=== PATIENT | female | born 1975 | race Caucasian/White ===

== ENCOUNTER 2022-11-25 23:33 | Inpatient (IN) | payer BC, MEDICARE ==
[~2022-11-25] VITALS: Ht 160 cm; Wt 93.4 kg
[~2022-11-25 23:33] MED LIST: AMBIEN10 MG PO; COLESTIPOL HCL1 GM PO; DICYCLOMINE HCL20 MG PO; EQUETRO200 MG PO; LEVOTHYROXINE25 MCG PO; LEVOTHYROXINE50 MCG PO; LIOTHYRONINE PO; LISINOPRIL10 MG PO; LITHIUM CARBON150 MG PO; METOPROLOL SUCC50 MG PO; METOPROLOL TART25 MG PO; NEXIUM40 MG PO; SEROQUEL200 MG PO; XANAX0.5 MG PO
[2022-11-26] VITALS (51 sets, daily range): BP systolic 46–140; BP diastolic 29–126
[2022-11-26] MEDS ORDERED: SODIUM CHLORIDE 0.9% 1000ML 1,000 ML IV SCH (01:00)
[2022-11-26] MEDS ORDERED: SODIUM CHLORIDE 0.9% 1000ML 1,000 ML IV ONE (01:00)
[2022-11-26] MEDS ORDERED: ALPRAZOLAM0.5 MG (01:50)
[2022-11-26] MEDS ORDERED: LITHIUM CARBON300 MG (01:50)
[2022-11-26] MEDS ORDERED: SYNTHROID25 MCG (01:50)
[2022-11-26] MEDS ORDERED: LISINOPRIL5 MG PO (01:50)
[2022-11-26] MEDS ORDERED: EQUETRO200 MG (01:50)
[2022-11-26] MEDS ORDERED: AMBIEN10 MG (01:50)
[2022-11-26] MEDS ORDERED: TREMFYA100 MG/11 (01:50)
[2022-11-26] MEDS ORDERED: QUETIAPINE FUM200 MG (01:50)
[2022-11-26] MEDS ORDERED: FENOFIBRATE145 M1 (01:50)
[2022-11-26] MEDS ORDERED: METFORMIN HCL500 M1 (01:50)
[2022-11-26] MEDS ORDERED: QUETIAPINE FUMA25 MG (01:50)
[2022-11-26] MEDS ORDERED: DEXTROSE 50% SYRINGE 50 ML IV PRN (02:45)
[2022-11-26] MEDS ORDERED: SOD POLYSTYRENE SULFONATE SUSP 15 GM/60 ML BTL PO ONE (02:45)
[2022-11-26] MEDS ORDERED: SODIUM BICARBONATE 8.4% 50 ML in SODIUM CHLORIDE 0.45% 1,000 ML IV SCH (02:45)
[2022-11-26] MEDS: HYDROCODONE/APAP 5MG-325MG TAB PO PRN ×2 (03:30→12:26)
[2022-11-26 03:52] LABS: CLARITY,URINE CLEAR (CLEAR); COLOR,URINE YELLOW (YELLOW); KETONES,URINE NEGATIVE (NEGATIVE); LEUKOCYTE ESTERASE ,URINE TRACE (NEGATIVE); NITRITE,URINE NEGATIVE (NEGATIVE); PROTEIN,URINE DIPSTICK 1+ (NEGATIVE); URINE UROBILINOGEN 0.2 mg/dL (0.2 - 1)
[2022-11-26 03:55] LABS: BACTERIA,URINE FEW /HPF; EPITHELIAL CELLS,URINE MANY /LPF
[2022-11-26] MEDS ORDERED: SODIUM CHLORIDE 0.45% 1,000 ML ONE ×2 (04:28→04:34)
[2022-11-26] MEDS ORDERED: SODIUM BICARBONATE 8.4% SYRING 50 ML ONE (04:30)
[2022-11-26] MEDS ORDERED: NOREPINEPHRINE 8 MG/D5W 250 ML 250 ML ONE (05:19)
[2022-11-26 06:37] LABS: BASOPHILS # (AUTO) 0.1 (0.0-0.1); BASOPHILS % 0.6 % (0.0-1.0); EOSINOPHILS # (AUTO) 0.1 (0.0-0.4); EOSINOPHILS % 0.9 % (0.0-6.0); HEMATOCRIT 33.8 % (34.2-44.1); HEMOGLOBIN 9.8 g/dL (12.0-16.0); LYMPHOCYTES # (AUTO) 2.8 (1.0-3.2); LYMPHOCYTES % 30.4 % (18.0-39.1); MEAN CORPUSCULAR HEMOGLOBIN 28.7 pg (28-32); MEAN CORPUSCULAR VOLUME 98.8 fL (81-99); MONOCYTES # (AUTO) 0.6 (0.2-0.8); MONOCYTES % 6.2 % (4.4-11.3); NEUTROPHILS # (AUTO) 5.2 (2.1-6.9); NEUTROPHILS % 57.4 % (38.7-80.0); PLATELET COUNT 283 x10e3/uL (140-360); RED BLOOD COUNT 3.42 x10e6/uL (3.6-5.1); RED CELL DISTRIBUTION WIDTH 14.9 % (11.7-14.4)
[2022-11-26 07:04] LABS: ANION GAP 15.6 mmol/L (8-16); CREATININE, SERUM 1.69 mg/dL (0.57-1.11); POTASSIUM 4.6 mmol/L (3.5-5.1)
[2022-11-26] MEDS: LEVOTHYROXINE SODIUM 75 MCG TAB PO SCH (09:06)
[2022-11-26] MEDS: LITHIUM CARBONATE 150 MG CAPSULE PO SCH ×2 (09:07→17:00)
[2022-11-26] MEDS: CARBAMAZEPINE 200 MG TAB PO SCH ×2 (09:07→17:27)
[2022-11-26] MEDS: INSULIN REGULAR, HUMAN 100 UNIT/1 ML SQ SCH ×4 (09:09→22:26)
[2022-11-26] MEDS: ONDANSETRON HCL INJ 2MG/ML 2ML 2 MG/ML VIAL IV PRN ×2 (12:26→21:30)
[2022-11-26 13:44] LABS: BAND NEUTROPHILS % (MANUAL) 8 %; EOSINOPHILS % (MANUAL) 1 % (0-7); LYMPHOCYTES % (MANUAL) 29 % (19-48); MONOCYTES % (MANUAL) 7 % (3.4-9.0); NEUTROPHILS % (MANUAL) 55 % (40-74)
[2022-11-26 13:45] LABS: PLATELET MORPHOLOGY COMMENT FEW LARGE
[2022-11-26 13:46] LABS: RBC MORPHOLOGY COMMENT NORMAL
[2022-11-26] MEDS: ALPRAZOLAM 0.5 MG TAB PO PRN ×2 (17:19→21:55)
[2022-11-26] MEDS: NOREPINEPHRINE 8 MG/D5W 250 ML 250 ML IV SCH ×2 (17:20→20:33)
[2022-11-26] MEDS: FUROSEMIDE INJ 10 MG/ML 2 ML VIAL IV SCH (18:26)
[2022-11-26] MEDS ORDERED: QUETIAPINE FUMARATE 100 MG TAB PO SCH (21:00)
[2022-11-26] MEDS: ZOLPIDEM TARTRATE 10 MG TAB PO PRN (21:55)
[2022-11-27] VITALS (86 sets, daily range): BP systolic 65–136; BP diastolic 28–117
[2022-11-27] MEDS: HYDROCODONE/APAP 5MG-325MG TAB PO PRN (03:38)
[2022-11-27] MEDS: ALPRAZOLAM 0.5 MG TAB PO PRN ×2 (03:45→08:37)
[2022-11-27] MEDS: NOREPINEPHRINE 8 MG/D5W 250 ML 250 ML IV SCH ×4 (07:31→22:11)
[2022-11-27] MEDS: POTASSIUM CHLORIDE 20 MEQ TAB CR PO SCH (08:08)
[2022-11-27] MEDS: LITHIUM CARBONATE 150 MG CAPSULE PO SCH ×2 (08:08→17:09)
[2022-11-27] MEDS: CARBAMAZEPINE 200 MG TAB PO SCH ×2 (08:08→17:09)
[2022-11-27] MEDS: FUROSEMIDE INJ 10 MG/ML 2 ML VIAL IV SCH ×2 (08:08→17:10)
[2022-11-27] MEDS: INSULIN REGULAR, HUMAN 100 UNIT/1 ML SQ SCH ×5 (08:11→21:00)
[2022-11-27] MEDS ORDERED: CEFTRIAXONE 2 GM in SODIUM CHLORIDE 0.9% 100 ML IV SCH (09:00)
[2022-11-27] MEDS: LEVOTHYROXINE SODIUM 75 MCG TAB PO SCH (09:02)
[2022-11-27] MEDS ORDERED: INSULIN GLARGINE 100 UNITS/ML VIAL SQ ONE ×3 (09:15→21:00)
[2022-11-27 09:37] LABS: BASOPHILS # (AUTO) 0.1 (0.0-0.1); BASOPHILS % 0.8 % (0.0-1.0); EOSINOPHILS % 0.4 % (0.0-6.0); HEMATOCRIT 43.2 % (34.2-44.1); HEMOGLOBIN 12.4 g/dL (12.0-16.0); LYMPHOCYTES # (AUTO) 2.2 (1.0-3.2); LYMPHOCYTES % 22.7 % (18.0-39.1); MEAN CORPUSCULAR HEMOGLOBIN 28.4 pg (28-32); MEAN CORPUSCULAR HGB CONC 28.7 g/dL (31-35); MEAN CORPUSCULAR VOLUME 99.1 fL (81-99); MONOCYTES # (AUTO) 0.5 (0.2-0.8); MONOCYTES % 5.5 % (4.4-11.3); NEUTROPHILS # (AUTO) 6.1 (2.1-6.9); NEUTROPHILS % 63.1 % (38.7-80.0); PLATELET COUNT 254 x10e3/uL (140-360); RED BLOOD COUNT 4.36 x10e6/uL (3.6-5.1); RED CELL DISTRIBUTION WIDTH 14.8 % (11.7-14.4)
[2022-11-27] MEDS ORDERED: ENOXAPARIN INJ 80 MG/0.8 ML SYR SC ONE (09:45)
[2022-11-27 09:48] LABS: INR 1.2; PROTHROMBIN TIME 15.4 seconds (11.9-14.5)
[2022-11-27 09:49] LABS: PARTIAL THROMBOPLASTIN TIME 27.3 seconds (23.8-35.5)
[2022-11-27 10:02] LABS: ALBUMIN 2.5 g/dL (3.5-5.0); ALBUMIN/GLOBULIN RATIO 0.6 (0.8-2.0); CALCIUM 8.7 mg/dL (8.4-10.2); CREATININE, SERUM 2.72 mg/dL (0.57-1.11)
[2022-11-27 10:51] LABS: BAND NEUTROPHILS % (MANUAL) 4 %; LYMPHOCYTES % (MANUAL) 16 % (19-48); MONOCYTES % (MANUAL) 5 % (3.4-9.0); MYELOCYTES % (MANUAL) 5 % (0-0); NEUTROPHILS % (MANUAL) 66 % (40-74); NUCLEATED RED BLOOD CELLS 1; PLATELET ESTIMATE ADEQUATE; PLATELET MORPHOLOGY COMMENT NORMAL; RBC MORPHOLOGY COMMENT NORMAL
[2022-11-27] MEDS ORDERED: INSULIN REGULAR, HUMAN 100 UNIT/1 ML SQ ONE (13:45)
[2022-11-27] MEDS: ONDANSETRON HCL INJ 2MG/ML 2ML 2 MG/ML VIAL IV PRN ×2 (14:36→22:10)
[2022-11-27] MEDS: HYDROCODONE/APAP 10MG-325MG TAB PO PRN (14:36)
[2022-11-27] MEDS: METOPROLOL SUCCINATE 50 MG TAB XL PO SCH (17:10)
[2022-11-27 19:52] LABS: ABG HCO3 14 mmol/L (22-26); ABG PCO2 28 mmHg (35-45); ABG PO2 104 mmHg (80-105); ABG TCO2 15
[2022-11-27] MEDS: ENOXAPARIN INJ 80 MG/0.8 ML SYR SC SCH (20:17)
[2022-11-27] MEDS: QUETIAPINE FUMARATE 100 MG TAB PO SCH (20:17)
[2022-11-27] MEDS ORDERED: SODIUM BICARBONATE 650 MG TAB PO ONE (20:50)
[2022-11-27] MEDS ORDERED: DEXTROSE 50% SYRINGE 50 ML IV PRN (21:00)
[2022-11-28] VITALS (84 sets, daily range): BP systolic 65–157; BP diastolic 39–102
[2022-11-28] MEDS: NOREPINEPHRINE 8 MG/D5W 250 ML 250 ML IV SCH ×4 (02:45→16:24)
[2022-11-28] MEDS: LEVOTHYROXINE SODIUM 50 MCG TAB PO SCH (05:42)
[2022-11-28] MEDS: ONDANSETRON HCL INJ 2MG/ML 2ML 2 MG/ML VIAL IV PRN ×3 (06:18→19:29)
[2022-11-28 06:44] LABS: BASOPHILS # (AUTO) 0.1 (0.0-0.1); BASOPHILS % 0.6 % (0.0-1.0); EOSINOPHILS # (AUTO) 0.2 (0.0-0.4); EOSINOPHILS % 1.6 % (0.0-6.0); HEMATOCRIT 38.5 % (34.2-44.1); HEMOGLOBIN 11.4 g/dL (12.0-16.0); LYMPHOCYTES # (AUTO) 2.8 (1.0-3.2); LYMPHOCYTES % 29.1 % (18.0-39.1); MEAN CORPUSCULAR HEMOGLOBIN 28.4 pg (28-32); MEAN CORPUSCULAR HGB CONC 29.6 g/dL (31-35); MONOCYTES # (AUTO) 0.6 (0.2-0.8); MONOCYTES % 6.2 % (4.4-11.3); NEUTROPHILS # (AUTO) 5.4 (2.1-6.9); NEUTROPHILS % 56.4 % (38.7-80.0); PLATELET COUNT 269 x10e3/uL (140-360); RED BLOOD COUNT 4.01 x10e6/uL (3.6-5.1); RED CELL DISTRIBUTION WIDTH 14.2 % (11.7-14.4)
[2022-11-28 07:12] LABS: ALBUMIN 2.3 g/dL (3.5-5.0); ALBUMIN/GLOBULIN RATIO 0.5 (0.8-2.0); ANION GAP 20.2 mmol/L (8-16); CALCIUM 8.7 mg/dL (8.4-10.2); CREATININE, SERUM 2.79 mg/dL (0.57-1.11); POTASSIUM 4.2 mmol/L (3.5-5.1)
[2022-11-28] MEDS: SODIUM BICARBONATE 650 MG TAB PO SCH ×3 (08:25→21:03)
[2022-11-28] MEDS: FENOFIBRATE 145 MG TAB PO SCH ×2 (08:25→08:53)
[2022-11-28] MEDS: COLESTIPOL HCL 1 G TAB PO SCH ×2 (08:25→08:53)
[2022-11-28] MEDS: LITHIUM CARBONATE 150 MG CAPSULE PO SCH ×2 (08:25→16:21)
[2022-11-28] MEDS: DICYCLOMINE HCL 20 MG TAB PO SCH ×2 (08:27→08:53)
[2022-11-28] MEDS: CARBAMAZEPINE 200 MG TAB PO SCH ×2 (08:27→16:21)
[2022-11-28] MEDS: METOPROLOL SUCCINATE 50 MG TAB XL PO SCH ×2 (08:27→16:23)
[2022-11-28] MEDS: ENOXAPARIN INJ 80 MG/0.8 ML SYR SC SCH ×2 (08:27→21:04)
[2022-11-28] MEDS: POTASSIUM CHLORIDE 20 MEQ TAB CR PO SCH (08:27)
[2022-11-28] MEDS: INSULIN GLARGINE 100 UNITS/ML VIAL SQ SCH ×2 (08:31→21:03)
[2022-11-28] MEDS: INSULIN REGULAR, HUMAN 100 UNIT/1 ML SQ SCH ×4 (08:32→21:03)
[2022-11-28 10:12] LABS: CHOL/HDL RATIO 4.6 (3.0-3.6); CHOLESTEROL 161 MD/DL (0-199); HDL CHOLESTEROL 35 MG/DL (40-60); TRIGLYCERIDES 431 MG/DL (0-149)
[2022-11-28] MEDS: QUETIAPINE FUMARATE 100 MG TAB PO SCH (21:03)
[2022-11-29] VITALS (85 sets, daily range): BP systolic 85–135; BP diastolic 43–95
[2022-11-29] MEDS: NOREPINEPHRINE 8 MG/D5W 250 ML 250 ML IV SCH (02:41)
[2022-11-29] MEDS: LEVOTHYROXINE SODIUM 50 MCG TAB PO SCH (05:18)
[2022-11-29 05:33] LABS: BASOPHILS # (AUTO) 0.1 (0.0-0.1); BASOPHILS % 0.6 % (0.0-1.0); EOSINOPHILS # (AUTO) 0.2 (0.0-0.4); EOSINOPHILS % 1.7 % (0.0-6.0); HEMOGLOBIN 10.1 g/dL (12.0-16.0); LYMPHOCYTES # (AUTO) 2.7 (1.0-3.2); LYMPHOCYTES % 30.9 % (18.0-39.1); MEAN CORPUSCULAR HEMOGLOBIN 28.5 pg (28-32); MEAN CORPUSCULAR HGB CONC 29.7 g/dL (31-35); MEAN CORPUSCULAR VOLUME 95.8 fL (81-99); MONOCYTES # (AUTO) 0.5 (0.2-0.8); MONOCYTES % 6.3 % (4.4-11.3); NEUTROPHILS # (AUTO) 4.7 (2.1-6.9); NEUTROPHILS % 54.6 % (38.7-80.0); PLATELET COUNT 259 x10e3/uL (140-360); RED BLOOD COUNT 3.55 x10e6/uL (3.6-5.1); RED CELL DISTRIBUTION WIDTH 14.3 % (11.7-14.4)
[2022-11-29 05:49] LABS: ANION GAP 17.9 mmol/L (8-16); CALCIUM 8.8 mg/dL (8.4-10.2); CREATININE, SERUM 2.39 mg/dL (0.57-1.11); POTASSIUM 3.9 mmol/L (3.5-5.1)
[2022-11-29] MEDS: ONDANSETRON HCL INJ 2MG/ML 2ML 2 MG/ML VIAL IV PRN ×2 (07:53→19:40)
[2022-11-29] MEDS: INSULIN REGULAR, HUMAN 100 UNIT/1 ML SQ SCH ×4 (07:54→20:19)
[2022-11-29] MEDS: POTASSIUM CHLORIDE 20 MEQ TAB CR PO SCH (07:58)
[2022-11-29] MEDS: SODIUM BICARBONATE 650 MG TAB PO SCH ×2 (07:58→17:27)
[2022-11-29] MEDS: LITHIUM CARBONATE 150 MG CAPSULE PO SCH ×2 (07:58→17:27)
[2022-11-29] MEDS: CARBAMAZEPINE 200 MG TAB PO SCH ×2 (07:59→17:27)
[2022-11-29] MEDS: ENOXAPARIN INJ 80 MG/0.8 ML SYR SC SCH (07:59)
[2022-11-29] MEDS: METOPROLOL SUCCINATE 50 MG TAB XL PO SCH ×2 (07:59→17:28)
[2022-11-29] MEDS: INSULIN GLARGINE 100 UNITS/ML VIAL SQ SCH ×2 (08:12→20:19)
[2022-11-29] MEDS: MINERAL OIL TOP SCH ×2 (08:20→17:27)
[2022-11-29] MEDS: [UNRECOGNIZED DRUG - OTHER] TOP SCH ×2 (08:20→17:27)
[2022-11-29] MEDS: GLYCERI TOP SCH ×2 (08:20→17:27)
[2022-11-29] MEDS: KCL 20 MEQ PACKET/ ORAL SOLN PO SCH (08:43)
[2022-11-29] MEDS ORDERED: MINERAL OIL/PETROLAT/GLYCERI 6OZ BTL TOP SCH (09:00)
[2022-11-29] MEDS ORDERED: SODIUM BICARBONATE 650 MG TAB PO SCH (09:00)
[2022-11-29] MEDS ORDERED: HEPARIN 25,000 UNIT 1,200 UNIT in DEXTROSE 5% 250ML 250 ML IV SCH (11:30)
[2022-11-29] MEDS: HEPARIN 25,000 UNIT 1,200 UNIT in DEXTROSE 5% 250ML 250 ML IV SCH (12:52)
[2022-11-29] MEDS: SODIUM CHLORIDE 0.9% 1000ML 1,000 ML IV SCH (18:47)
[2022-11-29] MEDS: ZOLPIDEM TARTRATE 10 MG TAB PO PRN (20:16)
[2022-11-29] MEDS: ALPRAZOLAM 0.5 MG TAB PO PRN (20:16)
[2022-11-29] MEDS: QUETIAPINE FUMARATE 100 MG TAB PO SCH (21:41)
[2022-11-29 21:44] LABS: CREATININE,URINE RANDOM 58.32 mg/dL (47-110); TOTAL PROTEIN 24HR, URINE 187.2 mg/24hr (50-100); TOTAL PROTEIN, URINE 20.8 mg/dL (1-14)
[2022-11-30] VITALS (41 sets, daily range): BP systolic 86–139; BP diastolic 60–97
[2022-11-30] MEDS: LEVOTHYROXINE SODIUM 50 MCG TAB PO SCH (05:53)
[2022-11-30 06:06] LABS: BASOPHILS % 0.5 % (0.0-1.0); EOSINOPHILS # (AUTO) 0.2 (0.0-0.4); EOSINOPHILS % 2.1 % (0.0-6.0); HEMATOCRIT 27.5 % (34.2-44.1); HEMOGLOBIN 8.8 g/dL (12.0-16.0); LYMPHOCYTES # (AUTO) 2.5 (1.0-3.2); LYMPHOCYTES % 29.6 % (18.0-39.1); MEAN CORPUSCULAR HEMOGLOBIN 29.1 pg (28-32); MEAN CORPUSCULAR VOLUME 91.1 fL (81-99); MONOCYTES # (AUTO) 0.5 (0.2-0.8); MONOCYTES % 5.7 % (4.4-11.3); NEUTROPHILS # (AUTO) 4.5 (2.1-6.9); NEUTROPHILS % 53.7 % (38.7-80.0); PLATELET COUNT 241 x10e3/uL (140-360); RED BLOOD COUNT 3.02 x10e6/uL (3.6-5.1); RED CELL DISTRIBUTION WIDTH 15.1 % (11.7-14.4)
[2022-11-30 06:29] LABS: ALBUMIN 2.3 g/dL (3.5-5.0); ALBUMIN/GLOBULIN RATIO 0.7 (0.8-2.0); ANION GAP 15.8 mmol/L (8-16); CALCIUM 8.7 mg/dL (8.4-10.2); CREATININE, SERUM 1.86 mg/dL (0.57-1.11); POTASSIUM 3.8 mmol/L (3.5-5.1)
[2022-11-30] MEDS: INSULIN REGULAR, HUMAN 100 UNIT/1 ML SQ SCH ×4 (07:36→20:36)
[2022-11-30] MEDS: SODIUM BICARBONATE 650 MG TAB PO SCH ×2 (08:24→17:13)
[2022-11-30] MEDS: CARBAMAZEPINE 200 MG TAB PO SCH ×2 (08:24→17:13)
[2022-11-30] MEDS: KCL 20 MEQ PACKET/ ORAL SOLN PO SCH (08:24)
[2022-11-30] MEDS: METOPROLOL SUCCINATE 50 MG TAB XL PO SCH ×2 (08:25→17:14)
[2022-11-30] MEDS: LITHIUM CARBONATE 150 MG CAPSULE PO SCH ×2 (08:25→17:14)
[2022-11-30] MEDS: INSULIN GLARGINE 100 UNITS/ML VIAL SQ SCH ×2 (08:27→20:38)
[2022-11-30] MEDS: [UNRECOGNIZED DRUG - OTHER] TOP SCH ×2 (08:27→17:14)
[2022-11-30] MEDS: GLYCERI TOP SCH ×2 (08:27→17:14)
[2022-11-30] MEDS: MINERAL OIL TOP SCH ×2 (08:27→17:14)
[2022-11-30] MEDS: HEPARIN 25,000 UNIT 1,200 UNIT in DEXTROSE 5% 250ML 250 ML IV SCH (13:36)
[2022-11-30] MEDS: SODIUM CHLORIDE 0.9% 1000ML 1,000 ML IV SCH (13:45)
[2022-11-30] MEDS: NOREPINEPHRINE 8 MG/D5W 250 ML 250 ML IV SCH (17:15)
[2022-11-30] MEDS: QUETIAPINE FUMARATE 100 MG TAB PO SCH (20:19)
[2022-11-30] MEDS: ALPRAZOLAM 0.5 MG TAB PO PRN (20:57)
[2022-11-30] MEDS: ZOLPIDEM TARTRATE 10 MG TAB PO PRN (20:59)
[2022-12-01] VITALS (53 sets, daily range): BP systolic 97–151; BP diastolic 61–104
[2022-12-01] MEDS: HEPARIN 25,000 UNIT 1,200 UNIT in DEXTROSE 5% 250ML 250 ML IV SCH ×2 (01:43→16:36)
[2022-12-01] MEDS: ALPRAZOLAM 0.5 MG TAB PO PRN ×2 (03:32→20:45)
[2022-12-01] MEDS: ONDANSETRON HCL INJ 2MG/ML 2ML 2 MG/ML VIAL IV PRN (03:32)
[2022-12-01] MEDS: LEVOTHYROXINE SODIUM 50 MCG TAB PO SCH (05:45)
[2022-12-01 07:31] LABS: BASOPHILS # (AUTO) 0.1 (0.0-0.1); EOSINOPHILS # (AUTO) 0.3 (0.0-0.4); EOSINOPHILS % 3.1 % (0.0-6.0); HEMATOCRIT 28.1 % (34.2-44.1); HEMOGLOBIN 8.6 g/dL (12.0-16.0); LYMPHOCYTES # (AUTO) 2.5 (1.0-3.2); LYMPHOCYTES % 24.8 % (18.0-39.1); MEAN CORPUSCULAR HEMOGLOBIN 28.8 pg (28-32); MEAN CORPUSCULAR HGB CONC 30.6 g/dL (31-35); MONOCYTES # (AUTO) 0.6 (0.2-0.8); MONOCYTES % 6.1 % (4.4-11.3); NEUTROPHILS # (AUTO) 5.2 (2.1-6.9); NEUTROPHILS % 51.7 % (38.7-80.0); PLATELET COUNT 301 x10e3/uL (140-360); RED BLOOD COUNT 2.99 x10e6/uL (3.6-5.1); RED CELL DISTRIBUTION WIDTH 15.5 % (11.7-14.4)
[2022-12-01 07:52] LABS: ALBUMIN 2.3 g/dL (3.5-5.0); ALBUMIN/GLOBULIN RATIO 0.6 (0.8-2.0); CALCIUM 8.7 mg/dL (8.4-10.2); CREATININE, SERUM 1.48 mg/dL (0.57-1.11)
[2022-12-01] MEDS: NOREPINEPHRINE 8 MG/D5W 250 ML 250 ML IV SCH (08:40)
[2022-12-01] MEDS: INSULIN REGULAR, HUMAN 100 UNIT/1 ML SQ SCH ×4 (08:43→20:48)
[2022-12-01] MEDS: KCL 20 MEQ PACKET/ ORAL SOLN PO SCH (08:44)
[2022-12-01] MEDS: INSULIN GLARGINE 100 UNITS/ML VIAL SQ SCH ×2 (08:44→20:47)
[2022-12-01] MEDS: CARBAMAZEPINE 200 MG TAB PO SCH ×2 (08:44→16:38)
[2022-12-01] MEDS: SODIUM BICARBONATE 650 MG TAB PO SCH ×2 (08:44→16:37)
[2022-12-01] MEDS: LITHIUM CARBONATE 150 MG CAPSULE PO SCH ×2 (08:44→16:37)
[2022-12-01] MEDS: [UNRECOGNIZED DRUG - OTHER] TOP SCH ×2 (08:46→16:38)
[2022-12-01] MEDS: MINERAL OIL TOP SCH ×2 (08:46→16:38)
[2022-12-01] MEDS: GLYCERI TOP SCH ×2 (08:46→16:38)
[2022-12-01] MEDS: METOPROLOL SUCCINATE 50 MG TAB XL PO SCH ×2 (08:47→16:38)
[2022-12-01 10:44] LABS: EOSINOPHILS % (MANUAL) 1 % (0-7); LYMPHOCYTES % (MANUAL) 24 % (19-48); MONOCYTES % (MANUAL) 3 % (3.4-9.0); MYELOCYTES % (MANUAL) 4 % (0-0); NEUTROPHILS % (MANUAL) 68 % (40-74); PLATELET ESTIMATE ADEQUATE; PLATELET MORPHOLOGY COMMENT NORMAL; RBC MORPHOLOGY COMMENT NORMAL
[2022-12-01] MEDS: SODIUM CHLORIDE 0.9% 1000ML 1,000 ML IV SCH (19:59)
[2022-12-01] MEDS: QUETIAPINE FUMARATE 100 MG TAB PO SCH (20:00)
[2022-12-01] MEDS: ZOLPIDEM TARTRATE 10 MG TAB PO PRN (20:45)
[2022-12-02] VITALS (37 sets, daily range): BP systolic 103–163; BP diastolic 68–112
[2022-12-02] MEDS: HEPARIN 25,000 UNIT 1,200 UNIT in DEXTROSE 5% 250ML 250 ML IV SCH (02:51)
[2022-12-02] MEDS ORDERED: HEPARIN 25,000 UNIT DRIP IV ONE (03:01)
[2022-12-02] MEDS: LEVOTHYROXINE SODIUM 50 MCG TAB PO SCH (05:13)
[2022-12-02] MEDS: ALPRAZOLAM 0.5 MG TAB PO PRN ×3 (05:42→22:16)
[2022-12-02 05:46] LABS: BASOPHILS % 0.3 % (0.0-1.0); EOSINOPHILS # (AUTO) 0.4 (0.0-0.4); EOSINOPHILS % 3.2 % (0.0-6.0); HEMATOCRIT 30.2 % (34.2-44.1); HEMOGLOBIN 8.5 g/dL (12.0-16.0); LYMPHOCYTES # (AUTO) 2.2 (1.0-3.2); LYMPHOCYTES % 20.1 % (18.0-39.1); MEAN CORPUSCULAR HEMOGLOBIN 28.6 pg (28-32); MEAN CORPUSCULAR HGB CONC 28.1 g/dL (31-35); MEAN CORPUSCULAR VOLUME 101.7 fL (81-99); MONOCYTES # (AUTO) 0.7 (0.2-0.8); NEUTROPHILS # (AUTO) 5.9 (2.1-6.9); NEUTROPHILS % 54.3 % (38.7-80.0); PLATELET COUNT 303 x10e3/uL (140-360); RED BLOOD COUNT 2.97 x10e6/uL (3.6-5.1); RED CELL DISTRIBUTION WIDTH 15.5 % (11.7-14.4)
[2022-12-02 07:13] LABS: ALBUMIN 2.7 g/dL (3.5-5.0); ALBUMIN/GLOBULIN RATIO 0.8 (0.8-2.0); ANION GAP 15.4 mmol/L (8-16); CALCIUM 9.3 mg/dL (8.4-10.2); CREATININE, SERUM 1.4 mg/dL (0.57-1.11); POTASSIUM 4.4 mmol/L (3.5-5.1)
[2022-12-02] MEDS: INSULIN REGULAR, HUMAN 100 UNIT/1 ML SQ SCH ×4 (07:26→21:00)
[2022-12-02] MEDS: LITHIUM CARBONATE 150 MG CAPSULE PO SCH ×2 (07:59→16:22)
[2022-12-02] MEDS: CARBAMAZEPINE 200 MG TAB PO SCH ×2 (07:59→16:22)
[2022-12-02] MEDS ORDERED: SODIUM CHLORIDE 0.9% IV NR (08:00)
[2022-12-02] MEDS ORDERED: ALTEPLASE RECOMBINANT IV NR (08:00)
[2022-12-02 08:09] LABS: BAND NEUTROPHILS % (MANUAL) 1 %; LYMPHOCYTES % (MANUAL) 26 % (19-48); MONOCYTES % (MANUAL) 6 % (3.4-9.0); MYELOCYTES % (MANUAL) 3 % (0-0); NEUTROPHILS % (MANUAL) 64 % (40-74); PLATELET ESTIMATE ADEQUATE; PLATELET MORPHOLOGY COMMENT NORMAL; RBC MORPHOLOGY COMMENT NORMAL
[2022-12-02] MEDS: KCL 20 MEQ PACKET/ ORAL SOLN PO SCH (09:00)
[2022-12-02] MEDS: SODIUM BICARBONATE 650 MG TAB PO SCH ×2 (09:00→16:22)
[2022-12-02] MEDS: GLYCERI TOP SCH ×2 (09:00→16:23)
[2022-12-02] MEDS: [UNRECOGNIZED DRUG - OTHER] TOP SCH ×2 (09:00→16:23)
[2022-12-02] MEDS: MINERAL OIL TOP SCH ×2 (09:00→16:23)
[2022-12-02] MEDS ORDERED: ALTEPLASE 50 MG/VIAL (29 MILLION IU) XX ONE (09:00)
[2022-12-02] MEDS: INSULIN GLARGINE 100 UNITS/ML VIAL SQ SCH ×2 (09:00→21:13)
[2022-12-02] MEDS: METOPROLOL SUCCINATE 50 MG TAB XL PO SCH ×2 (09:00→18:00)
[2022-12-02] MEDS: SODIUM CHLORIDE 0.9% 1000ML 1,000 ML IV SCH (09:20)
[2022-12-02] MEDS ORDERED: HEPARIN SOD (PORCINE) 1000 UNIT/ML 30ML ONE (10:00)
[2022-12-02] MEDS ORDERED: MIDAZOLAM HCL 2 MG/2 ML VIAL ONE ×3 (10:01→10:50)
[2022-12-02] MEDS ORDERED: FENTANYL CITRATE/PF 100MCG/2 ML INJ ONE ×3 (10:01→11:32)
[2022-12-02] MEDS ORDERED: HEPARIN SOD/SOD CHLORIDE 2,000 ML ONE (10:01)
[2022-12-02] MEDS ORDERED: SODIUM CHLORIDE 0.9% 1000ML 1,000 ML ONE ×2 (10:01→10:23)
[2022-12-02] MEDS ORDERED: LIDOCAINE HCL 1% 30ML-PF VIAL ONE (10:03)
[2022-12-02] MEDS ORDERED: IOPAMIDOL 300MG/ML 50ML INFUS..BTL IV ONE ×2 (10:03→10:40)
[2022-12-02] MEDS ORDERED: ONDANSETRON HCL INJ 2MG/ML 2ML 2 MG/ML VIAL ONE (10:16)
[2022-12-02] MEDS: NOREPINEPHRINE 8 MG/D5W 250 ML 250 ML IV SCH (12:40)
[2022-12-02] MEDS ORDERED: HYDRALAZINE HCL 20 MG/ML VIAL IV ONE (15:15)
[2022-12-02] MEDS ORDERED: ACETYLCYSTEINE 200 MG/ML 4ML VIAL PO SCH (18:00)
[2022-12-02 18:17] LABS: BASOPHILS # (AUTO) 0.1 (0.0-0.1); BASOPHILS % 0.7 % (0.0-1.0); EOSINOPHILS # (AUTO) 0.2 (0.0-0.4); EOSINOPHILS % 1.8 % (0.0-6.0); HEMOGLOBIN 7.7 g/dL (12.0-16.0); LYMPHOCYTES # (AUTO) 1.5 (1.0-3.2); LYMPHOCYTES % 11.7 % (18.0-39.1); MEAN CORPUSCULAR HEMOGLOBIN 30.2 pg (28-32); MEAN CORPUSCULAR HGB CONC 29.6 g/dL (31-35); MONOCYTES # (AUTO) 0.8 (0.2-0.8); MONOCYTES % 6.1 % (4.4-11.3); NEUTROPHILS # (AUTO) 8.8 (2.1-6.9); NEUTROPHILS % 67.4 % (38.7-80.0); PLATELET COUNT 300 x10e3/uL (140-360); RED BLOOD COUNT 2.55 x10e6/uL (3.6-5.1); RED CELL DISTRIBUTION WIDTH 15.9 % (11.7-14.4)
[2022-12-02 18:24] LABS: INR 1.07; PROTHROMBIN TIME 14.1 seconds (11.9-14.5)
[2022-12-02 18:25] LABS: PARTIAL THROMBOPLASTIN TIME 24.7 seconds (23.8-35.5)
[2022-12-02] MEDS ORDERED: SODIUM CHLORIDE 0.9% 1000ML 1,000 ML IV SCH (20:00)
[2022-12-02] MEDS: QUETIAPINE FUMARATE 100 MG TAB PO SCH (21:12)
[2022-12-02] MEDS: ZOLPIDEM TARTRATE 10 MG TAB PO PRN (22:16)
[2022-12-03] VITALS (11 sets, daily range): BP systolic 109–152; BP diastolic 69–91
[2022-12-03] MEDS: HEPARIN 25,000 UNIT 1,200 UNIT in DEXTROSE 5% 250ML 250 ML IV SCH (01:11)
[2022-12-03] MEDS ORDERED: ZOLPIDEM TARTRATE 10 MG TAB PO PRN (03:45)
[2022-12-03] MEDS: LEVOTHYROXINE SODIUM 50 MCG TAB PO SCH (05:18)
[2022-12-03] MEDS: CARBAMAZEPINE 200 MG TAB PO SCH ×2 (08:36→16:21)
[2022-12-03] MEDS: LITHIUM CARBONATE 150 MG CAPSULE PO SCH ×2 (08:37→16:21)
[2022-12-03] MEDS: METOPROLOL SUCCINATE 50 MG TAB XL PO SCH ×2 (08:37→16:42)
[2022-12-03] MEDS: SODIUM BICARBONATE 650 MG TAB PO SCH ×2 (08:37→16:21)
[2022-12-03] MEDS: ALPRAZOLAM 0.5 MG TAB PO PRN ×2 (08:37→16:26)
[2022-12-03] MEDS: KCL 20 MEQ PACKET/ ORAL SOLN PO SCH (08:38)
[2022-12-03] MEDS: INSULIN REGULAR, HUMAN 100 UNIT/1 ML SQ SCH ×3 (08:44→16:40)
[2022-12-03] MEDS: INSULIN GLARGINE 100 UNITS/ML VIAL SQ SCH (08:51)
[2022-12-03] MEDS: [UNRECOGNIZED DRUG - OTHER] TOP SCH ×2 (08:54→16:25)
[2022-12-03] MEDS: GLYCERI TOP SCH ×2 (08:54→16:25)
[2022-12-03] MEDS: MINERAL OIL TOP SCH ×2 (08:54→16:25)
[2022-12-03] MEDS: HYDROCODONE/APAP 10MG-325MG TAB PO PRN (10:33)
[2022-12-03] MEDS: ONDANSETRON HCL INJ 2MG/ML 2ML 2 MG/ML VIAL IV PRN (10:39)
[2022-12-03] MEDS ORDERED: HEPARIN 25,000 UNIT DRIP IV ONE (16:34)
== END 2022-12-03 17:30 | disposition home or self-care (01) | DRG 853 ==
LOC: ICU 11-26 00:13
PROC: 06HY33Z Insertion of Infusion Device into Lower Vein, Percutaneous Approach (ICD-10-PCS; principal; 2022-11-26)
PROC: 02HV33Z Insertion of Infusion Device into Superior Vena Cava, Percutaneous Approach (ICD-10-PCS; 2022-11-27)
PROC: 06CM3ZZ Extirpation of Matter from Right Femoral Vein, Percutaneous Approach (ICD-10-PCS; 2022-12-02)
DX: A41.9 Sepsis, unspecified organism (principal); R65.21 Severe sepsis with septic shock; N17.9 Acute kidney failure, unspecified; I82.401 Acute embolism and thrombosis of unspecified deep veins of right lower extremity; E87.1 Hypo-osmolality and hyponatremia; I12.9 Hypertensive chronic kidney disease with stage 1 through stage 4 chronic kidney disease, or unspecified chronic kidney disease; E11.22 Type 2 diabetes mellitus with diabetic chronic kidney disease; E03.9 Hypothyroidism, unspecified; K21.9 Gastro-esophageal reflux disease without esophagitis; F31.9 Bipolar disorder, unspecified; E66.01 Morbid (severe) obesity due to excess calories; K58.9 Irritable bowel syndrome, unspecified; N18.30 Chronic kidney disease, stage 3 unspecified; R60.0 Localized edema; L40.9 Psoriasis, unspecified; R80.9 Proteinuria, unspecified; I08.1 Rheumatic disorders of both mitral and tricuspid valves; Z98.51 Tubal ligation status; Z88.1 Allergy status to other antibiotic agents; Z88.0 Allergy status to penicillin; Z90.89 Acquired absence of other organs; Z90.49 Acquired absence of other specified parts of digestive tract; Z98.890 Other specified postprocedural states; Z68.36 Body mass index [BMI] 36.0-36.9, adult; Z79.84 Long term (current) use of oral hypoglycemic drugs; Z79.899 Other long term (current) drug therapy
CPT/HCPCS: 36415; 36569; 36600; 37187; 37191; 71045; 74176; 75820; 75825; 76770; 80048; 80053; 80061; 80156; 80178; 81001; 81025; 81050; 82570; 82805; 82948; 83605; 84156; 85025; 85610; 85730; 87040; 87086; 93005; 93306; 93970; 93971; 96372; 99152; 99153; 99252; C1769; C1874; C1887; C1894; J0360; J0696; J1644; J1650; J1815; J1817; J1940; J2001; J2250; J2405; J2997; J3010; J3301; J7030; J7050

== ENCOUNTER → 2022-12-27 | Day surgery (SDC) | payer BC, MEDICARE ==
[~2022-12-27] MED LIST changes: +ALPRAZOLAM0.5 MG; +AMBIEN10 MG; +EQUETRO200 MG; +FENOFIBRATE145 M1; +FENTANYL CITRATE/PF 100MCG/2 ML INJ ONE; +LISINOPRIL5 MG PO; +LITHIUM CARBON300 MG; +METFORMIN HCL500 M1; +MIDAZOLAM HCL 2 MG/2 ML VIAL ONE; +QUETIAPINE FUM200 MG; +QUETIAPINE FUMA25 MG; +SYNTHROID25 MCG; +TREMFYA100 MG/11
[2022-12-27 13:28] LABS: BASOPHILS # (AUTO) 0.1 (0.0-0.1); BASOPHILS % 0.6 % (0.0-1.0); EOSINOPHILS # (AUTO) 0.3 (0.0-0.4); EOSINOPHILS % 2.7 % (0.0-6.0); HEMATOCRIT 40.9 % (34.2-44.1); HEMOGLOBIN 11.8 g/dL (12.0-16.0); LYMPHOCYTES # (AUTO) 1.9 (1.0-3.2); LYMPHOCYTES % 18.9 % (18.0-39.1); MEAN CORPUSCULAR HEMOGLOBIN 29.2 pg (28-32); MEAN CORPUSCULAR HGB CONC 28.9 g/dL (31-35); MEAN CORPUSCULAR VOLUME 101.2 fL (81-99); MONOCYTES # (AUTO) 0.4 (0.2-0.8); MONOCYTES % 3.8 % (4.4-11.3); NEUTROPHILS # (AUTO) 7.5 (2.1-6.9); NEUTROPHILS % 72.9 % (38.7-80.0); PLATELET COUNT 271 x10e3/uL (140-360); RED BLOOD COUNT 4.04 x10e6/uL (3.6-5.1)
[2022-12-27 13:56] LABS: INR 0.95; PROTHROMBIN TIME 12.9 seconds (11.9-14.5)
[2022-12-27 13:57] LABS: PARTIAL THROMBOPLASTIN TIME 27.2 seconds (23.8-35.5)
[2022-12-27 14:03] LABS: ANION GAP 15.3 mmol/L (8-16); BLOOD UREA NITROGEN 19 mg/dL (7-26); BUN/CREATININE RATIO 12 (6-25); CALCIUM 10.9 mg/dL (8.4-10.2); CARBON DIOXIDE 20 mmol/L (22-29); CHLORIDE 112 mmol/L (98-107); CREATININE, SERUM 1.55 mg/dL (0.57-1.11); GLUCOSE 116 mg/dL (74-118); POTASSIUM 4.3 mmol/L (3.5-5.1); SODIUM 143 mmol/L (136-145)
[2022-12-27 15:00] VITALS: BP 136/84
[2022-12-27 15:15] VITALS: BP 124/83
[2022-12-27 15:30] VITALS: BP 129/70
[2022-12-27 15:45] VITALS: BP 150/85
== END | disposition home or self-care (01) ==
LOC: DX 11:28 → CATH LAB 11:29
PROVIDERS: ATTEND Internal Medicine Hematology & Oncology
DX: I82.431 Acute embolism and thrombosis of right popliteal vein (principal); K76.0 Fatty (change of) liver, not elsewhere classified; D50.0 Iron deficiency anemia secondary to blood loss (chronic); E03.9 Hypothyroidism, unspecified; E11.9 Type 2 diabetes mellitus without complications; I10 Essential (primary) hypertension; Z79.899 Other long term (current) drug therapy; F41.9 Anxiety disorder, unspecified; F32.A Depression, unspecified; Z88.1 Allergy status to other antibiotic agents; Z88.0 Allergy status to penicillin; Z20.822 Contact with and (suspected) exposure to COVID-19; Z79.02 Long term (current) use of antithrombotics/antiplatelets; Z79.01 Long term (current) use of anticoagulants; Z79.84 Long term (current) use of oral hypoglycemic drugs; Z68.35 Body mass index [BMI] 35.0-35.9, adult
CPT/HCPCS: 0223U; 36415 ×2; 37193; 80048; 84702; 85025; 85610; 85730; C1887; J2250; J3010; 74470